=== PATIENT | female | born 1970 | race Caucasian/White ===

== ENCOUNTER → 2016-05-16 | Outpatient (CLI) | payer BC ==
--- NOTE | 2016-05-19 18:34 | HOLTMON ---
[facility] Test Date: 2016-05-16 Pat Name: REGINA CEDENO Department: Room: - Gender: Tooling Specialist: : [id number] Requested By: Gabriella Mei Order Number: [id number] Reading MD: Doc Humphreys Interpretive Statements THE PATIENT WAS MONITORED FOR 24 HOURS. SINUS RHYTHM WITH NORMAL AV AND INTRAVENTRICULAR CONDUCTION IS THE BASELINE MECHANISM. THERE WERE NO PAUSES, NO PVC'S AND RARE PAC'S. PATIENT REPORTED SINGLE EPISODE OF ARM PAIN CORRESPONDING TO SINUS RHYTHM WITHOUT ST SEGMENT SHIFT. NORMAL HOLTER MONITOR. Electronically Signed On 05-19-2016 18:34:25 EST by Doc Humphreys
== END ==
LOC: M EKG 10:47
PROVIDERS: ATTEND Registered Nurse
DX: I49.8 Other specified cardiac arrhythmias (principal)

== ENCOUNTER → 2019-09-05 | Outpatient (REF) | LOC: M LABCFH 10:02 | DX: L98.9 Disorder of the skin and subcutaneous tissue, unspecified (principal) ==

== ENCOUNTER → 2023-10-20 | Outpatient (CLI) | payer OTHER | LOC: M RAD 13:06 | PROVIDERS: ATTEND Orthopaedic Surgery | DX: R22.42 Localized swelling, mass and lump, left lower limb (principal) ==